=== PATIENT | male | born 1930 | race Caucasian/White ===

== ENCOUNTER → 2017-06-22 | Outpatient (CLI) | payer MEDICARE, OTHER ==
[~2017-06-22] MED LIST: ASPI-816 PO; ASPIRIN; CALC-901 PO; CHOL10005 PO; CHOL100058 PO; CPAP; GLUC-198 PO; GLUC100026 PO; HYDR-4309 PO; IOPAMIDOL 76% 75 ML INFUS BTL 75 ML ONE; LEVO25TA56 PO; LEVO75TA73 PO; LORA-629 PO; LUTE20TA PO; MAGN400T36 PO; OMEG-23 PO; OSE75 PO; PNEU0.5D3 IM; PRILOSEC PO; PSEU-112 PO; VITA-131 PO; VITA1CAP48 PO; VITA200C8 PO; VITA40TA PO; ZINC50TA43 PO
--- NOTE | 2017-06-22 15:12 | RADIOLOGY IMAGING REPORT ---
FACILITY: [facility] PATIENT NAME: Juan Diego Ervin : 1930 MR: [id number] V: [id number] EXAM DATE: ORDERING PHYSICIAN: RANJEET SULLIVAN TECHNOLOGIST: Location: [facility] - [place] Patient: Juan Diego Ervin : 1930 Visit/Account:[id number] Date of Sevice: 06/22/2017 ABDOMEN/PELVIS WITH CONTRAST HISTORY: Right lower quadrant pain TECHNIQUE: CT abdomen and pelvis with intravenous contrast. Contiguous axial images of the abdomen and pelvis was performed from the lung bases to the symphysis pubis. One of the following dose optimization techniques was utilized in the performance of this exam: Autom ated exposure control; adjustment of the mA and/or kV according to the patient's size; or use of an i terative reconstruction technique. Specific details can be referenced in the facility's radiology C T exam operational policy. CONTRAST: 75 cc of Isovue-370 COMPARISON: None. FINDINGS: Visualized lung bases: Negative. Hepatobiliary: 1.3 cm benign cyst segment 3 of the liver is noted. 2 mm benign-appearing cyst segme nt 2 of liver is noted. Gallbladder and bile ducts are decompressed. Portal venous system is patent . Spleen: Negative. Adrenals: Right adrenal fullness may represent hyperplasia. Kidneys/: Benign-appearing renal cortical cysts are noted bilaterally. Largest single cyst is the lower pole the right kidney measures 4.3 x 4 cm. 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 Pancreas: Negative. GI: Patient is mildly constipated. Appendix is normal. No evidence for bowel obstruction or focal inflammation. There is diverticulosis of the sigmoid colon. Vessels/spaces/nodes: Atherosclerotic calcification of the aorta and iliac vessels is noted. Varico se veins in the proximal left thigh are noted. Bones/soft tissues: Patient has a scoliosis with degenerative changes. Subtle sclerotic focus left femoral neck is noted. IMPRESSION: 1. No evidence for acute pathology in the abdomen or pelvis. 2. 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 3. Mild constipation but no bowel obstruction or focal inflammation. 4. Other chronic findings are detailed above. Report Dictated By: Nik Wilkerson MD at 06/22/2017 2:55 PM Report E-Signed By: Nik Wilkerson MD at 06/22/2017 3:08 PM WSN:[id number]
== END ==
LOC: CT 02:12
PROVIDERS: ATTEND Internal Medicine Gastroenterology
DX: K76.89 Other specified diseases of liver (principal); N28.1 Cyst of kidney, acquired; Z90.79 Acquired absence of other genital organ(s); I25.10 Atherosclerotic heart disease of native coronary artery without angina pectoris; K57.30 Diverticulosis of large intestine without perforation or abscess without bleeding; M41.80 Other forms of scoliosis, site unspecified
CPT/HCPCS: 36415; 74177; 82565; Q9967

== ENCOUNTER 2017-06-25 11:19 | Outpatient (RCR) | payer MEDICARE, OTHER ==
[~2017-06-25 11:19] MED LIST changes: -IOPAMIDOL 76% 75 ML INFUS BTL 75 ML ONE
--- NOTE | 2017-06-25 14:22 | PT INITIAL EVALUATION ---
MEDICAL DIAGNOSIS: Strengthening TREATMENT DIAGNOSIS: R rotator cuff weakness DATE OF ONSET: 06/03/17 SUBJECTIVE: Juan Diego Ervin presents to PT to learn a gym program to strengthen his upper body. He noticed his R UE was weak when he was trying to get up from a fall while cross-country skiing this spring, which hasn't happened before. He declined the Quick DASH but relates his has minimal functional trouble with his R UE except for heavy lifting, getting up from ski falls. Pain location is R shoulder and described as ache. Pain scale is 0/10 now. Pain is worse with lifting heavy weight and better with rest. REHAB PROBLEM LIST: Decreased ROM Decreased Strength Decreased Balance PREVIOUS MEDICAL HISTORY: Pacemaker, low thyroid. 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 OBJECTIVE: Posture: Thoracic kyphosis, depressed R shoulder. ROM: AROM shoulders WFL with R shoulder scaption 125 degrees. Strength: R supraspinatus 3+/5, ER 4-/5, IR 5/5, biceps 4-/5, triceps 5/5, L shoulder 5- to 5/5. B forearms 5/5, hands 5-/5. Special Tests: Negative sulcus sign, positive impingement zone. Mobility: Tight B shoulder girdle muscles, G-H joints. Gait: Reverse scapulohumeral rhythm lifting 3 lb. > 70 deg. abduction. Balance: Single leg stand R 3 seconds, L 6 seconds. Tandem stand with mild trunk shimmy on firm surface, eyes open. Increased postural sway and retro balance loss with static stand on [employer], eyes closed, increased sway with eyes open. ASSESSMENT: Juan Diego Ervin presents wtih rotator cuff weakness, muscle imbalance from rotator cuff tear, creating difficulty with lifting and arising in snow. He's instructed in both upper body strengthening and balance exercises. I'll DC PT to our self-pay graduate gym program. Thank you. Short Term Goals Today: Juan Diego is instructed in upper body and balance exercise for R rotator cuff and balance. met Patient's Goals Learn upper body exercises to strengthen R shoulder for upward reach and improve single limb balance. met PLAN: Patient to be seen for Strengthening/condition Neuromuscular Re-ed Gym Exercise Program Patient is seen for today and discharged to gym exercise program. Thank you for this referral. If you have any questions, comments, or concerns about this report or plan, please contact me at . MTDD
[2017-06-29] MEDS ORDERED: LEVO75TA73 PO (12:48)
== END 2017-06-25 18:00 | disposition home or self-care (01) ==
LOC: PT 11:19
PROVIDERS: ATTEND Internal Medicine
DX: M62.81 Muscle weakness (generalized) (principal); M25.511 Pain in right shoulder; E03.9 Hypothyroidism, unspecified; Z95.0 Presence of cardiac pacemaker
CPT/HCPCS: 97161

== ENCOUNTER 2018-01-10 16:47 | Emergency (ER) | payer MEDICARE, OTHER ==
[~2018-01-10 16:47] MED LIST changes: -CHOL100052 PO; +HYDR-4309 PO; -HYDR-653 PO
[2018-01-10] MEDS ORDERED: CHOL100052 PO (17:01)
[2018-01-10 17:21] LABS: PLATELET COUNT, AUTOMATED 217 K/uL (150-450)
--- NOTE | 2018-01-10 17:21 | EKG ---
FACILITY: [facility] PATIENT NAME: ANASTACIA QUESADA : [id number] MR: [id number] V: [id number] EXAM DATE: ORDERING PHYSICIAN: ANASTACIA STILES TECHNOLOGIST: CARLOS Cortés Reason : WEAKNESS Blood Pressure : / mmHG Vent. Rate : 069 BPM Atrial Rate : 069 BPM P-R Int : 242 ms QRS Dur : 104 ms QT Int : 392 ms P-R-T Axes : 080 -50 070 degrees QTc Int : 420 ms Sinus rhythm with 1st degree AV block Left axis deviation Septal infarct , age undetermined Abnormal ECG No previous ECGs available Confirmed by EFREN LAUREN ([id number]) on 01/11/2018 7:38:29 AM Referred By: GO Confirmed By:EFREN LAUREN
[2018-01-10] MEDS ORDERED: IOPAMIDOL 76% 75 ML INFUS BTL 75 ML ONE (17:25)
[2018-01-10] MEDS ORDERED: NS(*) 0.9% 50 ML BAG 50 ML ONE (17:25)
--- NOTE | 2018-01-10 17:26 | ER Report ---
History and Physical Time Seen By MD: 17:00 Hx. of Stated Complaint: Patient was picking up some wine at [employer] when he became dizzy and his "muscles wouldn't work". HPI/ROS CHIEF COMPLAINT: extremity weakness HISTORY OF PRESENT ILLNESS: 87-year-old male was in his usual state of health today when he was shopping at the liquor store and noticed right upper extremity and right lower extremity weakness that caused him to feel imbalanced. At the same time patient noted that he was confused about how many bottles of wine he was holding. Patient states that he did not have vertigo or headache and denies chest pain or trouble breathing. He states symptoms lasted less than 10 minutes and resolved after he had decided to come here. Patient has never had similar symptoms, however he does note that he has had brief loss of vision in his eye that his doctor is called a TIA. Patient takes baby aspirin because of this history. Patient has not had recent injuries, recent headaches, or other similar symptoms. He denies facial weakness or slurred speech. He is currently asymptomatic. REVIEW OF SYSTEMS: Constitutional: No fever, no chills. Eyes: No discharge. ENT: No sore throat. Cardiovascular: No chest pain, no palpitations. Respiratory: No cough, no shortness of breath. Gastrointestinal: No abdominal pain, no vomiting. Genitourinary: No hematuria. Musculoskeletal: No back pain. Skin: No rashes. Neurological: No headache. Remainder of the 14 system rev: Yes Allergies: Coded Allergies: norfloxacin (Verified Allergy, Unknown, rash, 01/10/18) Home Meds Active Scripts Levothyroxine Sodium (LEVOTHYROXINE SODIUM) 75 Mcg Tablet, 1 TAB PO QDAY, #90 TAB 3 Refills Prov:ALEK CLAREK MD 06/29/17 Reported Medications Cholecalciferol (Vitamin D3) (VITAMIN D) 1,000 Unit Tablet, 1000 UNIT PO DAILY 01/10/18 Vitamin K2 (VITAMIN K2) 40 Mcg Tablet, 2.5 TAB PO QODAY 12/06/14 Glucosamine Sulfate 2KCL (GLUCOSAMINE) 1,000 Mg Tablet, 3 TAB PO QDAY 12/06/14 Loratadine (LORATADINE) 10 Mg Tablet, 1 TAB PO DAILY PRN for allergy symptoms 12/05/14 Pseudoephedrine Hcl (PSEUDOEPHEDRINE HCL) 30 Mg Tablet, 2 TAB PO DAILY PRN for allergy symptoms 12/05/14 Zinc Gluconate (ZINC) 50 Mg Tablet, 0.33 TAB PO DAILY 12/05/14 Vitamin E (Dl,Tocopheryl Acet) (VITAMIN E) 200 Unit Capsule, 1 CAP PO QODAY, CAPSULE 12/05/14 Vitamin B Complex (VITAMIN B COMPLEX) 1 Each Tablet, 1 TAB PO DAILY 12/05/14 Vitamins A And D (VITAMIN A AND D) 1 Each Capsule, 1 CAP PO DAILY, CAPSULE 12/05/14 Magnesium Oxide (MAGNESIUM OXIDE) 400 Mg Tablet, 1 CAP PO DAILY 12/05/14 Lutein (LUTEIN) 20 Mg Tablet, 1 CAP PO QODAY 12/05/14 Rickman-3 Fatty Acids/Fish Oil (FISH OIL 1,000 MG SOFTGEL) 1 Each Capsule, 1 CAP PO DAILY, CAPSULE 12/05/14 Calcium Citrate/Vitamin D3 (CALCIUM CITRATE - VIT D CAPLET) 1 Each Tablet, 1 TAB PO DAILY 12/05/14 Aspirin (Children's Aspirin) 81 Mg Tab.chew, 1 TAB PO BID, #100 TAB 4 Refills 01/26/14 Discontinued Reported Medications Cholecalciferol (Vitamin D3) (VITAMIN D) 1,000 Unit Capsule, 2 CAP PO QDAY, CAPSULE 12/05/14 Reviewed Nurses Notes: Yes Old Medical Records Reviewed: Yes Hx Smoking: No Smoking Status: Never Smoker Exposure to Second Hand Smoke?: No Constitutional Vital Sign - Last 24 Hours 01/10/18 16:52 Temp 97.5 Pulse 75 Resp 16 B/P (MAP) 175/88 Pulse Ox 91 O2 Delivery Room Air Physical Exam General Appearance: The patient is alert, has no immediate need for airway protection and no signs of toxicity. [ ] Eyes: Pupils equal and round no pallor or injection. ENT, Mouth: Mucous membranes are moist. Respiratory: There are no retractions, lungs are clear to auscultation. Cardiovascular: Regular rate and rhythm. no carotid bruits Gastrointestinal: Abdomen is soft and non tender, no masses, bowel sounds normal. Neurological: alert, oriented x 4, cn ii-xii intact. nl musc strength. FVFTFC. NIHSS 0 Skin: Warm and dry, no rashes. Musculoskeletal: Neck is supple non tender. Extremities are nontender, nonswollen and have full range of motion. DIFFERENTIAL DIAGNOSIS: After history and physical exam differential diagnosis was considered for altered mental status including but not limited to hypoglycemia, infectious process, electrolyte abnormality, head injury and intoxicants.weakness including but not limited to electrolyte abnormality, depression, anxiety, CVA, spinal cord abnormality, and infectious causes. Medical Decision Making Data Points Result Diagram: 01/10/18 1705 01/10/18 1705 Laboratory Hematology Test 01/10/18 17:05 01/10/18 18:27 Red Blood Count 4.78 M/uL (4.00-5.60) Mean Corpuscular Volume 100.0 fL (80.0-96.0) Mean Corpuscular Hemoglobin 34.4 pg (26.0-33.0) Mean Corpuscular Hemoglobin Concent 34.4 g/dL (32.0-36.0) Red Cell Distribution Width 12.9 % (11.5-14.5) Mean Platelet Volume 8.2 fL (7.2-11.1) Neutrophils (%) (Auto) 54.6 % (39.4-72.5) Lymphocytes (%) (Auto) 30.4 % (17.6-49.6) Monocytes (%) (Auto) 9.6 % (4.1-12.4) Eosinophils (%) (Auto) 4.7 % (0.4-6.7) Basophils (%) (Auto) 0.7 % (0.3-1.4) Nucleated RBC Relative Count (auto) 0.1 /100WBC Neutrophils # (Auto) 3.6 K/uL (2.0-7.4) Lymphocytes # (Auto) 2.0 K/uL (1.3-3.6) Monocytes # (Auto) 0.6 K/uL (0.3-1.0) Eosinophils # (Auto) 0.3 K/uL (0.0-0.5) Basophils # (Auto) 0.0 K/uL (0.0-0.1) Nucleated RBC Absolute Count (auto) 0.00 K/uL Prothrombin Time 13.5 seconds (12.0-14.4) Prothromb Time International Ratio 1.03 Activated Partial Thromboplast Time 26 seconds (23-35) Sodium Level 137 mmol/L (137-145) Potassium Level 4.1 mmol/L (3.5-5.0) Chloride Level 104 mmol/L (98-107) Carbon Dioxide Level 24 mmol/L (22-30) Blood Urea Nitrogen 27 mg/dl (9-21) Creatinine 1.10 mg/dl (0.66-1.25) Glomerular Filtration Rate Calc > 60.0 Random Glucose 88 mg/dl (75-110) Calcium Level 9.6 mg/dl (8.4-10.2) Total Bilirubin 0.5 mg/dl (0.2-1.3) Aspartate Amino Transf (AST/SGOT) 42 U/L (0-35) Alanine Aminotransferase (ALT/SGPT) 39 U/L (0-56) Alkaline Phosphatase 85 U/L (0-126) Total Protein 6.5 g/dl (6.3-8.2) Albumin 4.0 g/dl (3.5-5.0) Troponin I 0.250 ng/ml Chemistry Test 01/10/18 17:05 01/10/18 18:27 White Blood Count 6.6 k/uL (4.5-11.0) Red Blood Count 4.78 M/uL (4.00-5.60) Hemoglobin 16.4 g/dL (14.0-18.0) Hematocrit 47.8 % (42.0-52.0) Mean Corpuscular Volume 100.0 fL (80.0-96.0) Mean Corpuscular Hemoglobin 34.4 pg (26.0-33.0) Mean Corpuscular Hemoglobin Concent 34.4 g/dL (32.0-36.0) Red Cell Distribution Width 12.9 % (11.5-14.5) Platelet Count 217 K/uL (150-450) Mean Platelet Volume 8.2 fL (7.2-11.1) Neutrophils (%) (Auto) 54.6 % (39.4-72.5) Lymphocytes (%) (Auto) 30.4 % (17.6-49.6) Monocytes (%) (Auto) 9.6 % (4.1-12.4) Eosinophils (%) (Auto) 4.7 % (0.4-6.7) Basophils (%) (Auto) 0.7 % (0.3-1.4) Nucleated RBC Relative Count (auto) 0.1 /100WBC Neutrophils # (Auto) 3.6 K/uL (2.0-7.4) Lymphocytes # (Auto) 2.0 K/uL (1.3-3.6) Monocytes # (Auto) 0.6 K/uL (0.3-1.0) Eosinophils # (Auto) 0.3 K/uL (0.0-0.5) Basophils # (Auto) 0.0 K/uL (0.0-0.1) Nucleated RBC Absolute Count (auto) 0.00 K/uL Prothrombin Time 13.5 seconds (12.0-14.4) Prothromb Time International Ratio 1.03 Activated Partial Thromboplast Time 26 seconds (23-35) Glomerular Filtration Rate Calc > 60.0 Calcium Level 9.6 mg/dl (8.4-10.2) Total Bilirubin 0.5 mg/dl (0.2-1.3) Aspartate Amino Transf (AST/SGOT) 42 U/L (0-35) Alanine Aminotransferase (ALT/SGPT) 39 U/L (0-56) Alkaline Phosphatase 85 U/L (0-126) Total Protein 6.5 g/dl (6.3-8.2) Albumin 4.0 g/dl (3.5-5.0) Troponin I 0.250 ng/ml Coagulation Test 01/10/18 17:05 Prothrombin Time 13.5 seconds Prothromb Time International Ratio 1.03 Activated Partial Thromboplast Time 26 seconds EKG/Imaging EKG Interpretation 12 lead EKG: Rhythm: sinus rhythm with first deg av block [place]: left QRS: widened qrs ST segments: no st elevation or depression No prior EKGs for comparison Monitor Interpretation: Normal Sinus Rhythm ED Course/Re-evaluation ED Course Patient presents with right-sided upper and lower extremity weakness per history that lasted less than 10 minutes. Patient has not had prior symptoms similar symptoms, though he does have symptoms that sound like amaurosis fugax with the last being greater than one year ago. Patient has NIH stroke scale of zero in the ED and no return of symptoms. Pt labs sig for elevated troponin; rpt trop continues to elevate; ekg x 2 without dynamic changes though with q waves v1-2. I performed bedside us; aortic root < 4 cm, no pericardial effusion. Upon further ros pt denies sympotms over past week that may be attributed to acs; consider acs v catechol release secondary to tia. Recommend tx to neurology/web retailer for eval and consideration of need for catheterization, further imaging. Discussed at length with pt who is amenable to this. I d/w [facility] hospitalist Dr. Koo who agrees to admit. Pt adminsitered asa prior to tx. Given asympotmatic and no dynamic ekg changes, will defer heparin at this time.. Decision to Disposition Date: Jan 10, 2018 Decision to Disposition Time: 19:15 Depart Departure Latest Vital Signs Vital Signs Date Time Temp Pulse Resp B/P (MAP) Pulse Ox O2 Delivery O2 Flow Rate FiO2 01/10/18 16:52 97.5 75 16 175/88 91 Room Air Impression: Primary Impression: Transient ischemic attack Additional Impression: Elevated troponin Condition: Condition Unchanged Disposition: [facility] TO [facility] ([facility] inpatient) Referrals: ALEK CLARKE MD (PCP) Problem Qualifiers ANASTACIA STILES MD Jan 10, 2018 17:26
[2018-01-10 17:30] LABS: INR 1.03
--- NOTE | 2018-01-10 18:01 | EKG ---
FACILITY: [facility] [place] PATIENT NAME: ANASTACIA QUESADA : [id number] MR: [id number] V: [id number] EXAM DATE: ORDERING PHYSICIAN: ANASTACIA STILES TECHNOLOGIST: ANDRÉS Cortés Reason : REPEAT Blood Pressure : / mmHG Vent. Rate : 061 BPM Atrial Rate : 061 BPM P-R Int : 254 ms QRS Dur : 108 ms QT Int : 432 ms P-R-T Axes : 070 -54 063 degrees QTc Int : 434 ms Sinus rhythm with 1st degree AV block Left anterior fascicular block Abnormal ECG Confirmed by EFREN LAUREN ([id number]) on 01/11/2018 7:38:42 AM Referred By: GO Confirmed By:EFREN LAUREN
--- NOTE | 2018-01-10 18:32 | RADIOLOGY IMAGING REPORT ---
FACILITY: [facility] [place] PATIENT NAME: Juan Diego Ervin : 1930 MR: [id number] V: [id number] EXAM DATE: ORDERING PHYSICIAN: JUAN DIEGO STILES TECHNOLOGIST: Location: [facility] [place] Patient: Juan Diego Ervin : 1930 Visit/Account:[id number] Date of Sevice: 01/10/2018 Exam type: CHEST SINGLE AP History: weakness Comparison: None. Findings: Both lungs are well-expanded and clear. There is no focal infiltrate, pleural effusion or pneumothora x. Heart is enlarged. Dual-lead pacemaker device is noted. The osseous structures are unremarkable. Elizabeth ent may have a healed left posterior 6th rib fracture. IMPRESSION: 1. No acute cardiopulmonary disease. 2. Cardiomegaly with a dual-lead pacemaker in place. Report Dictated By: Nik Wilkerson MD at 01/10/2018 6:26 PM Report E-Signed By: Nik Wiklerson MD at 01/10/2018 6:28 PM WSN:[id number]
--- NOTE | 2018-01-10 18:33 | RADIOLOGY IMAGING REPORT ---
[place] [facility] [place] NAME: Juan Diego Ervin : 1930 MR: [id number] V: [id number] EXAM DATE: ORDERING PHYSICIAN: JUAN DIEGO STILES TECHNOLOGIST: Location: [facility] Patient: Juan Diego Ervin : 1930 Visit/Account:[id number] Date of Sevice: 01/10/[address] scan without contrast COMPARISONS: Head CT scan without contrast dated December 09, 2016 ADDITIONAL PERTINENT HISTORY: ] Extremity weakness TECHNIQUE: Multiple axial images were obtained from the skull base to the vertex without IV contrast . One of the following dose optimization techniques was utilized in the performance of this exam: Aut omated exposure control; adjustment of the mA and/or kV according to the patient's size; or use of an iterative reconstruction technique. Specific details can be referenced in the facility's radiology CT exam operational policy. FINDINGS: Midline shift: Negative Ventricles: Mild enlargement of the lateral and third ventricles. Otherwise negative Brain parenchyma: Patchy hypoattenuation within the periventricular and subcortical white matter, no nspecific but likely representing small vessel ischemic change on a chronic basis. No intraparenchyma l hemorrhage or mass effect. Extra-axial spaces: Mild cerebral atrophy. Otherwise negative Intracranial vasculature: Cavernous internal carotid and distal vertebral artery calcifications. Oth erwise negative Osseous structures: Negative Paranasal sinuses and mastoid air cells: Negative Surrounding soft tissues and orbits: Negative IMPRESSION: 1. Age related changes as described above. 2. No evidence of acute intracranial pathology. Report Dictated By: Jamal Sky MD at 01/10/2018 6:21 PM Report E-Signed By: Jamal Sky MD at 01/10/2018 6:30 PM WSN:[id number]
[2018-01-10 18:36] VITALS: BP 182/101
--- NOTE | 2018-01-10 18:43 | RADIOLOGY IMAGING REPORT ---
FACILITY: [facility] PATIENT NAME: Juan Diego Ervin : 1930 MR: [id number] V: [id number] EXAM DATE: ORDERING PHYSICIAN: JUAN DIEGO STILES TECHNOLOGIST: Location: [facility] [place] Patient: Juan Diego Ervin : 1930 Visit/Account:[id number] Date of Sevice: 01/10/2018 CTA of the head and neck with and without contrast CTA of the neck with and without contrast: Comparisons: None Additional pertinent history: Right extremity weakness TECHNIQUE: Multiple axial images were obtained from the superior mediastinum through the mid portion of the brain during the continuous infusion of iodinated contrast. 2-D and 3-D reformatted images w ere obtained off the axial source data. Degrees of stenosis of the cervical internal carotid arterie s were obtained using NASCET criteria. One of the following dose optimization techniques was utilize d in the performance of this exam: Automated exposure control; adjustment of the mA and/or kV accordi ng to the patient's size; or use of an iterative reconstruction technique. Specific details can be referenced in the facility's radiology CT exam operational policy. CONTRAST: 75 mL of Isovue-370 FINDINGS: Thoracic aortic arch/origins of the great vessels: Minimal calcified atherosclerotic plaque involvin g the thoracic aortic arch. No evidence of significant stenosis involving the origins of the great ve ssels. Vertebral arteries: Patient is left vertebral dominant. The vertebral arteries have a normal appeara nce. No significant stenosis noted. Common carotid arteries: Negative Carotid artery bifurcations: Negative Cervical internal carotid arteries: Negative Surrounding soft tissues: Negative Osseous structures: Spondylitic change involving the cervical spine. No acute appearing bony abnorma lities. IMPRESSION: 1. 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 2. No significant stenosis noted within the arterial vasculature of the neck. CTA of the head with contrast: COMPARISONS: None ADDITIONAL PERTINENT HISTORY: Right extremity weakness Technique: Multiple axial images were obtained from the skull base to the vertex during the continuou s infusion of IV contrast. 2-D and 3-D reformatted were obtained off the axial source data. One of the following dose optimization techniques was utilized in the performance of this exam: Automated ex posure control; adjustment of the mA and/or kV according to the patient's size; or use of an iterativ e reconstruction technique. Specific details can be referenced in the facility's radiology CT exam operational policy. CONTRAST: 75 mL of Isovue-370 FINDINGS: Vascular variants: None Visualized vertebrobasilar system: Negative Distal internal carotid arteries: Negative Internal carotid artery bifurcation: Negative A1 and M1 segments: Negative A2 and M2 segments: Negative Anterior communicating artery: Negative P1 segments: Negative Brain parenchyma: Patchy hypoattenuation within the periventricular and subcortical white matter, no nspecific but likely representing small vessel ischemic change on a chronic basis. Osseous structures: Negative Visualized paranasal sinuses and mastoid air cells: Negative IMPRESSION: 1. Normal CTA of the head with contrast Report Dictated By: Jamal Sky MD at 01/10/2018 6:30 PM Report E-Signed By: Jamal Sky MD at 01/10/2018 6:38 PM WSN:[id number]
--- NOTE | 2018-01-10 18:43 | RADIOLOGY IMAGING REPORT ---
[place] [facility] [place] Juan Diego Ervin : 1930 MR: [id number] V: [id number] EXAM DATE: ORDERING PHYSICIAN: JUAN DIEGO STILES TECHNOLOGIST: Location: [facility] Patient: Juan Diego Ervin : 1930 Visit/Account:[id number] Date of Sevice: 01/10/2018 CTA of the head and neck with and without contrast CTA of the neck with and without contrast: Comparisons: None Additional pertinent history: Right extremity weakness TECHNIQUE: Multiple axial images were obtained from the superior mediastinum through the mid portion of the brain during the continuous infusion of iodinated contrast. 2-D and 3-D reformatted images w ere obtained off the axial source data. Degrees of stenosis of the cervical internal carotid arterie s were obtained using NASCET criteria. One of the following dose optimization techniques was utilize d in the performance of this exam: Automated exposure control; adjustment of the mA and/or kV accordi ng to the patient's size; or use of an iterative reconstruction technique. Specific details can be referenced in the facility's radiology CT exam operational policy. CONTRAST: 75 mL of Isovue-370 FINDINGS: Thoracic aortic arch/origins of the great vessels: Minimal calcified atherosclerotic plaque involvin g the thoracic aortic arch. No evidence of significant stenosis involving the origins of the great ve ssels. Vertebral arteries: Patient is left vertebral dominant. The vertebral arteries have a normal appeara nce. No significant stenosis noted. Common carotid arteries: Negative Carotid artery bifurcations: Negative Cervical internal carotid arteries: Negative Surrounding soft tissues: Negative Osseous structures: Spondylitic change involving the cervical spine. No acute appearing bony abnorma lities. IMPRESSION: 1. 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 2. No significant stenosis noted within the arterial vasculature of the neck. CTA of the head with contrast: COMPARISONS: None ADDITIONAL PERTINENT HISTORY: Right extremity weakness Technique: Multiple axial images were obtained from the skull base to the vertex during the continuou s infusion of IV contrast. 2-D and 3-D reformatted were obtained off the axial source data. One of the following dose optimization techniques was utilized in the performance of this exam: Automated ex posure control; adjustment of the mA and/or kV according to the patient's size; or use of an iterativ e reconstruction technique. Specific details can be referenced in the facility's radiology CT exam operational policy. CONTRAST: 75 mL of Isovue-370 FINDINGS: Vascular variants: None Visualized vertebrobasilar system: Negative Distal internal carotid arteries: Negative Internal carotid artery bifurcation: Negative A1 and M1 segments: Negative A2 and M2 segments: Negative Anterior communicating artery: Negative P1 segments: Negative Brain parenchyma: Patchy hypoattenuation within the periventricular and subcortical white matter, no nspecific but likely representing small vessel ischemic change on a chronic basis. Osseous structures: Negative Visualized paranasal sinuses and mastoid air cells: Negative IMPRESSION: 1. Normal CTA of the head with contrast Report Dictated By: Jamal Sky MD at 01/10/2018 6:30 PM Report E-Signed By: Jamal Sky MD at 01/10/2018 6:38 PM WSN:[id number]
[2018-01-10] MEDS ORDERED: ASPIRIN 81 MG CHEW PO ONE (19:05)
== END 2018-01-10 20:07 | disposition short-term general hospital (02) ==
LOC: ER 17:29
DX: G45.9 Transient cerebral ischemic attack, unspecified (principal); R79.89 Other specified abnormal findings of blood chemistry
CPT/HCPCS: 36415; 70450; 70496; 70498; 71045; 84484; 85025; 85610; 85730; 93005; 99285; A9270; J7050; Q9967; 36416; 82040; 82247; 82310; 82374; 82435; 82565; 82947; 82948; 84075; 84132; 84155; 84295; 84450; 84460; 84520

== ENCOUNTER → 2018-01-10 | Outpatient (CLI) | payer MEDICARE, OTHER ==
[~2018-01-10] MED LIST changes: -ASPI-816 PO; +ASPI-870 PO; +CHOL100052 PO; -HYDR-4309 PO; +HYDR-653 PO
== END ==
LOC: AMB 19:44
PROVIDERS: ATTEND Nurse Practitioner
DX: R79.89 Other specified abnormal findings of blood chemistry (principal); Z95.0 Presence of cardiac pacemaker
CPT/HCPCS: A0425; A0426

== ENCOUNTER → 2018-02-15 | Outpatient (CLI) | payer MEDICARE, OTHER ==
[~2018-02-15] MED LIST changes: +ATOR-1 PO; +CHOL100052 PO; +CLOP75TA43 PO; -HYDR-4309 PO; +HYDR-653 PO
--- NOTE | 2018-02-15 17:24 | RADIOLOGY IMAGING REPORT ---
FACILITY: [facility] [place] PATIENT NAME: Juan Diego Ervin : 1930 MR: [id number] V: [id number] EXAM DATE: ORDERING PHYSICIAN: PANDA PHAM TECHNOLOGIST: Location: [facility] [place] Patient: Juan Diego Ervin : 1930 Visit/Account:[id number] Date of Sevice: 02/15/2018 CAROTID HISTORY: TIA COMPARISON: None. FINDINGS: Grayscale, duplex and color Doppler interrogation of the extracranial carotid and vertebral arteries was performed bilateral. On the right, peak systolic velocities within the common and internal carotid arteries are 103 and 80 cm/sec respectively. No plaque formation is identified. Doppler waveforms are within normal limits .. Antegrade flow within the common, internal and external carotid arteries as well as vertebral art lex. ICA/CCA ratio 0.8. On the left, peak systolic velocities within the common and internal carotid arteries are 133 and 89 cm/sec respectively. There is a trace amount of plaque formation seen involving the common carotid a rtery. No hemodynamically significant stenosis is identified. Doppler waveforms are within normal l imits.. Antegrade flow within the common, internal and external carotid arteries as well as vertebra l artery. ICA/CCA ratio 0.7. IMPRESSION: Normal carotid ultrasound Velocity criteria are extrapolated from diameter data as defined by the Society of Radiologists in [facility] Consensus Conference Radiology 2003; 229;340-346 Report Dictated By: Jason Weston at 02/15/2018 5:18 PM Report E-Signed By: Jason Weston at 02/15/2018 5:20 PM WSN:[email or web address]
== END ==
LOC: US 00:54
PROVIDERS: ATTEND Internal Medicine Cardiovascular Disease
DX: G54.9 Nerve root and plexus disorder, unspecified (principal)
CPT/HCPCS: 93880

== ENCOUNTER → 2018-03-14 | Outpatient (CLI) | payer MEDICARE, OTHER | LOC: AUD 13:00 | PROVIDERS: ATTEND Otolaryngology | DX: H90.3 Sensorineural hearing loss, bilateral (principal) | CPT/HCPCS: 92557; 92570 ==

== ENCOUNTER → 2018-05-13 | Outpatient (CLI) | payer MEDICARE, OTHER ==
[~2018-05-13] MED LIST changes: +ATOR10TA65 PO
== END ==
LOC: AUD 14:48
PROVIDERS: ATTEND Otolaryngology
DX: H90.A22 Sensorineural hearing loss, unilateral, left ear, with restricted hearing on the contralateral side (principal)
CPT/HCPCS: 92552; 92556

== ENCOUNTER → 2018-06-20 | Outpatient (CLI) | payer MEDICARE, OTHER ==
--- NOTE | 2018-06-20 15:07 | RADIOLOGY IMAGING REPORT ---
FACILITY: [facility] - [place] PATIENT NAME: Juan Diego Ervin : 1930 MR: [id number] V: [id number] EXAM DATE: ORDERING PHYSICIAN: ALEK CLARKE TECHNOLOGIST: Location: [facility] Patient: Juan Diego Ervin : 1930 Visit/Account:[id number] Date of Sevice: 06/20/2018 BONE DENSITY HISTORY: s osteopenia Clinical history: Osteopenia. Comparison: None. LUMBAR SPINE: The bone mineral density (BMD) measured from L1-L4 correlates with a Z-score of 1.3 and a T-score of 0.0 which is normal as defined by the World Health Organization. The corresponding risk of fracture in the lumbar spine is not increased compared with a young adult reference population. HIP: Bone mineral density (BMD) measured in the left total hip region correlates with a Z-score of 0.9 and a T-score of -0.8 which is low normal as defined by the World Health Organization. The correspondin g risk of fracture in the hip is increased between 1-2 times compared with a young adult reference po pulation. Bone mineral density (BMD) measured in the left Femoral Neck region measures 0.979 g/cm?. T score of -0.8. Low normal. Fracture risk increased between 1-2 times Impression: 1. Lumbar spine: Normal. 2. Left Total Hip: Low normal. 3. Left Femoral Neck: Bone Mineral Density is 0.979 g/cm?. Low normal The next DEXA scan of this patient should include the following sites: L1-L4 and left hip. FRAX? WHO Fracture Risk Assessment Tool link: <http://www.shef.ac.uk/FRAX/tool.jsp?[email or web address]> PLEASE NOTE: 1) The World Health Organization defines low BMD as follows: T-score Normal > -1 Osteopenia < -1 and > -2.5 Osteoporosis < -2.5 without fractures Established osteoporosis < -2.5 with fractures 2) In general, you may wish to consider: Diagnosis Treatment Follow-up DEXA Normal BMD Prevention 2-3 years Osteopenia Prevention/therapy 1-2 years Osteoporosis Therapy Yearly 3) Fracture risk estimated from the T-score is more accurate for vertebral fractures (often spontane ous) than for hip fractures. Report Dictated By: Mino Tavares MD at 06/20/2018 2:54 PM Report E-Signed By: Mino Tavares MD at 06/20/2018 3:03 PM ROSAURAN:REMY
== END ==
LOC: RAD 08:09
PROVIDERS: ATTEND Internal Medicine
DX: M85.80 Other specified disorders of bone density and structure, unspecified site (principal)
CPT/HCPCS: 77080

== ENCOUNTER → 2018-08-11 | Outpatient (CLI) | payer MEDICARE, OTHER ==
[~2018-08-11] MED LIST changes: +ASPI-1471 PO; +CALC200T27 PO; +DEXT1DRO16 OP; +GLUC15002 PO; +PSEU30TA8 PO; +[UNRECOGNIZED DRUG - CODE] PO
== END ==
LOC: RESP 02:13
PROVIDERS: ATTEND Family Medicine
DX: G47.33 Obstructive sleep apnea (adult) (pediatric) (principal)

== ENCOUNTER → 2018-10-25 | Outpatient (CLI) | payer MEDICARE, OTHER ==
[~2018-10-25] MED LIST changes: +DOXY-179 PO
[2018-10-25 12:17] LABS: PLATELET COUNT, AUTOMATED 155 K/uL (150-450)
== END ==
LOC: LAB 11:44
PROVIDERS: ATTEND Nurse Practitioner Primary Care
DX: R50.9 Fever, unspecified (principal)
CPT/HCPCS: 36415; 82040; 82247; 82310; 82374; 82435; 82565; 82947; 84075; 84132; 84155; 84295; 84450; 84460; 84520; 85025; 85651

== ENCOUNTER → 2018-11-15 | Outpatient (CLI) | payer MEDICARE, OTHER | LOC: LAB 10:26 | PROVIDERS: ATTEND Nurse Practitioner Primary Care | DX: M25.50 Pain in unspecified joint (principal) | CPT/HCPCS: 36415; 86617 ==

== ENCOUNTER 2018-11-20 19:44 | Emergency (ER) | payer MEDICARE, OTHER ==
--- NOTE | 2018-11-20 20:07 | ER Report ---
History and Physical Time Seen By MD: 20:02 Hx. of Stated Complaint: PT REPORTS A SHARP PAIN IN R EYE WHILE EATING DINNER. PT DENIES VISION CHANGES OR PAIN AT THIS TIME. PT REPORTS HE IS TAKING DOXYCYCLINE FOR LYME DISEASE, "HEADACHES ARE A SIDE EFFECT, WANT TO SEE IF THERE ARE ANY BROKEN VESSELS IN MY EYE" HPI/ROS CHIEF COMPLAINT: Right eye pain HISTORY OF PRESENT ILLNESS: This is an 88-year-old male who presents to the emergency department for right eye pain. This is a acute sudden onset of right eye pain several hours ago while having dinner, the pain has resolved, no visual changes. He is currently taking doxycycline for Lyme disease, he wanted a quick evaluation of his eye to ensure that there is nothing concerning, no other complaints, no fevers or chills. No nausea or vomiting. No chest pain or s hortness of breath. REVIEW OF SYSTEMS: Constitutional: No fever, no chills. Eyes: As above. ENT: No sore throat. Cardiovascular: No chest pain, no palpitations. Respiratory: No cough, no shortness of breath. Gastrointestinal: No abdominal pain, no vomiting. Genitourinary: No hematuria. Musculoskeletal: No back pain. Skin: No rashes. Neurological: No headache. Allergies: Coded Allergies: norfloxacin (Verified Allergy, Unknown, rash, 11/20/18) Home Meds Active Scripts Doxycycline Hyclate (DOXYCYCLINE HYCLATE) 100 Mg Tablet, 1 TAB PO BID for 14 Days, #28 TAB 0 Refills Prov:ARUN ABARCA DNP, COFFEE ATTENDANT-BC 11/15/18 Levothyroxine Sodium (LEVOTHYROXINE SODIUM) 75 Mcg Tablet, 1 TAB PO QDAY for 90 Days, #90 TAB 4 Refills Prov:MALIK NGUYEN MD 08/30/18 Reported Medications Dextran 70/Hypromellose/Pf (ARTIFICIAL TEARS DROPS) 1 Each Droperette, 1 EACH OP PRN 08/01/18 Pseudoephedrine Hcl (NASAL DECONGESTANT) 30 Mg Tablet, 2 TAB PO PRN 08/01/18 Calcium Citrate (CALCIUM CITRATE) Unknown Strength Tablet, 600 MG PO DAILY 08/01/18 Glucosamine Hcl (GLUCOSAMINE HCL) Unknown Strength Tablet, 3000 MG PO DAILY 08/01/18 Vitamin A (VITAMIN A) 10,000 Unit Capsule, 1 CAP PO QODAY, CAPSULE 08/01/18 Aspirin (ASPIR 81) 81 Mg Tablet.dr, 1 TAB PO BID, TAB 08/01/18 Atorvastatin Calcium (ATORVASTATIN CALCIUM) 10 Mg Tablet, 0.5 TAB PO QODAY, TAB 04/06/18 Cholecalciferol (Vitamin D3) (VITAMIN D) 1,000 Unit Tablet, 1 TAB PO BID 01/10/18 Loratadine (LORATADINE) 10 Mg Tablet, 1 TAB PO DAILY PRN for allergy symptoms 12/05/14 Zinc Gluconate (ZINC) 50 Mg Tablet, 0.33 TAB PO DAILY 12/05/14 Vitamin E (Dl,Tocopheryl Acet) (VITAMIN E) 200 Unit Capsule, 1 CAP PO QODAY 12/05/14 Vitamin B Complex (VITAMIN B COMPLEX) 1 Each Tablet, 1 TAB PO DAILY 12/05/14 Magnesium Oxide (MAGNESIUM OXIDE) 400 Mg Tablet, 1 CAP PO DAILY 12/05/14 Lutein (LUTEIN) 20 Mg Tablet, 1 CAP PO QODAY 12/05/14 [place]-3 Fatty Acids/Fish Oil (FISH OIL 1,000 MG SOFTGEL) 1 Each Capsule, 1 CAP PO DAILY 12/05/14 Past Medical/Surgical History The patient has a past medical and surgical history of TIAs, headaches with occasional aura, pacemaker, fainting spells, syncope, prostatectomy, occasional urinary incontinence, lung disease, wears glasses, hard of hearing, hypothyroidism, hand surgery. Reviewed Nurses Notes: Yes Hx Smoking: No Smoking Status: Never Smoker Exposure to Second Hand Smoke?: No Constitutional Vital Sign - Last 24 Hours 11/20/18 11/20/18 19:51 20:55 Temp 98.1 Pulse 75 70 Resp 16 16 B/P (MAP) 155/93 138/88 (105) Pulse Ox 94 94 O2 Delivery Room Air Room Air Physical Exam General Appearance: The patient is alert, has no immediate need for airway protection and no signs of toxicity. Eyes: Pupils equal and round no pallor or injection. EOMs intact. No nystagmus. Fundus exam unremarkable. Pressure in the right eye is 11, pressure in the left eye is 13. Visual acuity was 20/40 on the right, 20/40 on the left, 20/40 combined with corrective lenses ENT, Mouth: Mucous membranes are moist. Respiratory: There are no retractions, lungs are clear to auscultation. Cardiovascular: Regular rate and rhythm. Gastrointestinal: Abdomen is soft and non tender, no masses, bowel sounds normal. Neurological: Alert and oriented 4. Moving all extremities. Following all commands. No focal neuro deficits per Skin: Warm and dry, no rashes. Musculoskeletal: Neck is supple non tender. Extremities are nontender, nonswollen and have full range of motion. DIFFERENTIAL DIAGNOSIS: After history and physical exam differential diagnosis was considered for CVA, TIA, ocular migraine, glaucoma. Medical Decision Making ED Course/Re-evaluation ED Course The patient was admitted to room. A history and physical were obtained. Differential diagnoses were considered. The patient was complaint free and pain- free at the time of my exam, a fundus exam revealed no concerning findings, Pressure in the right eye is 11, pressure in the left eye is 13. Visual acuity was 20/40 on the right, 20/40 on the left, 20/40 combined with corrective lenses.I reviewed the results with the patient, I did offer a CT of the brain and orbits, the patient declined at this time. He will follow-up with his coil repair technician tomorrow or Wednesday for reexamination. Patient had no other questions or concerns at this time is agreeable with this plan of care and discharged home. Decision to Disposition Date: Nov 20, 2018 Decision to Disposition Time: 20:21 Depart Departure Latest Vital Signs Vital Signs Date Time Temp Pulse Resp B/P (MAP) Pulse Ox O2 Delivery O2 Flow Rate FiO2 11/20/18 20:55 70 16 138/88 (105) 94 Room Air 11/20/18 19:51 98.1 Impression: Primary Impression: Pain, eye, right Condition: Improved Disposition: HOME OR SELF-CARE Referrals: MALIK NGUYEN MD (PCP) Patient Instructions: Eye Pain (ED) Additional Instructions: There were no concerning findings on the fundus exam or the pressure exam tonight. Please follow-up with your eye doctor tomorrow or the next day for reevaluation. If you have recurrent pain or visual changes, visual loss or any other concerning symptoms please return to the emergency department immediately for reevaluation, at which time we will likely perform the CT that I offered tonight. Drink plenty of water. Get plenty of rest. Return to ER for any concerns or worsening symptoms. LM SUH COFFEE ATTENDANT-BC Nov 20, 2018 20:07
[2018-11-20] MEDS ORDERED: PROPARACAINE 0.5% OP 15ML BTL OD ONE (20:10)
[2018-11-20 20:55] VITALS: BP 138/88
== END 2018-11-20 20:56 | disposition home or self-care (01) ==
LOC: ER 19:54
DX: H57.11 Ocular pain, right eye (principal)
CPT/HCPCS: 99282; A9270